=== PATIENT | female | born 2000 | race African-American/Black ===

== ENCOUNTER 2019-03-01 15:08 | Emergency (ER) | payer SELFPAY ==
[~2019-03-01] VITALS: Ht 167.6 cm; Wt 49.9 kg
[2019-03-01 15:16] VITALS: BP 132/75
--- NOTE | 2019-03-01 15:20 | NUR ---
[facility] OFFICER STATES PT WAS RUNNING FROM POLICE AND PT HAS ASTHMA. PT IN NO RR DISTERESS, PAIN TO RT MIDDLE FINGER, NO OBVIOUS INJURY NOTED.
--- NOTE | 2019-03-01 17:00 | NUR ---
Patient discharged with v/s stable. Written and verbal after care instructions given and explained. Patient alert, oriented and verbalized understanding of instructions. [place] Police with in custody. All questions addressed prior to discharge. ID band removed. Patient advised to follow up with PMD. Rx of ibuprofen given. Patient educated on indication of medication including possible reaction and side effects. Opportunity to ask questions provided and answered.
[2019-03-01 17:01] VITALS: BP 125/73
== END 2019-03-01 17:00 ==
LOC: MED 15:08
DX: M79.644 Pain in right finger(s) (principal); J45.909 Unspecified asthma, uncomplicated; Z02.89 Encounter for other administrative examinations
CPT/HCPCS: 73140; 99283